=== PATIENT | male | born 1990 | race Caucasian/White ===

== ENCOUNTER 2016-12-13 08:00 | Inpatient (IN) | payer OTHER ==
[~2016-12-13] VITALS: Ht 182.9 cm; Wt 88.5 kg
--- NOTE | ~2016-12-13 | PN ---
Unit #: [id number] #: [id number] Patient: BRENDEN DIA [id number] [facility] [address] [place] [address] [id number] MR#: [id number] NAME: BRENDEN DIA ROOM: [facility] Age: 26 Sex: M Admission Date: 12/13/2016 : 1990 Attending Physician: Jef Higgins M.D. Admitting Physician: Jef Higgins M.D. Primary Care Physician: Florinda CARRILLO PROGRESS NOTES DATE OF SERVICE 12/15/2016 DISCUSSION Brenden slept a little bit better with Remeron last night. His mood continues to depressed and anxious with a congruent affect this morning. He is alert and fully oriented. His memory and concentration appear intact and his thought processes are logical with no active psychosis. He does continue to endorse suicidal ideation. ASSESSMENT Major depression. PLAN We will continue current treatment plan in the introduction of Remeron. Dictated by... Yessi Stinson/osbaldo TD: 12/18/2016 23:03 [facility] [id number] [facility] Page 1 of 1 X Jef Higgins MD PROGRESS NOTE
--- NOTE | ~2016-12-13 | HP ---
Unit #: [id number] #: [id number] Patient: BRENDEN DIA [id number] [place] [address] [id number] MR#: [id number] NAME: BRENDEN DIA ROOM: [facility] Age: 26 Sex: M Admission Date: 12/13/2016 : 1990 Attending Physician: Jef Higgins M.D. Admitting Physician: Jef Higgins M.D. Primary Care Physician: Florinda Taylor HISTORY AND PHYSICAL HISTORY OF PRESENT ILLNESS Brenden is a 26-year-old male admitted on 12/13/2016 to [facility] for attempted suicide by overdosing on benzos. PAST MEDICAL HISTORY Hepatitis C. PAST SURGICAL HISTORY Sinus surgical repair for nasal polyps and left wrist fractures surgically repaired with pin placement. SOCIAL HISTORY Denies tobacco or alcohol use. does a report a history of opioid and benzo use but denies any in the past five months other than his attempted overdose. He is currently single and living with his parents. FAMILY HISTORY Noncontributory. REVIEW OF SYSTEMS CONSTITUTIONAL: No fever or chills. HEENT: Denies any sore throat, ear pain or runny nose. CARDIOVASCULAR: Denies chest pain, irregular heart rhythm or palpitations. CHEST: Denies shortness of breath or cough. No hemoptysis. GASTROINTESTINAL: Denies nausea, vomiting, diarrhea or chronic constipation. ENDOCRINE: Denies history of increased thirst or urination. No recent significant weight loss or gain. GENITOURINARY: Denies dysuria, frequency, or hematuria. SKIN: Denies any rashes. HEMATOLOGIC: Denies history of increased bleeding or bruising. MUSCULOSKELETAL: Denies any hot, swollen joints. No generalized muscle pain. NEUROLOGIC: Denies problems with vision or speech. No frequent, severe headaches. No numbness, tingling or weakness in any extremities. Denies loss of bladder or bowel control. CURRENT MEDICATIONS Paxil and Carafate. ALLERGIES Unit #: [id number] #: [id number] Patient: BRENDEN DIA No known drug allergies. PHYSICAL EXAMINATION GENERAL: Alert, oriented, in no acute distress. VITAL SIGNS: Blood pressure 143/103, heart rate 78, respirations 18, temperature 98.6. HEIGHT: 6 foot 0 inches. WEIGHT: 195 pounds. SKIN: Warm and dry without rash or lesion. HEENT: Normocephalic. TMs not viewed. Oral and nasal passages clear. Conjunctivae clear. PERRLA. EOMs intact. NECK: Supple without lymphadenopathy or thyromegaly. HEART: Regular rate and rhythm without murmur. LUNGS: Clear. ABDOMEN: Soft, nontender, without masses or hepatosplenomegaly. : Not done. EXTREMITIES: No evidence of cyanosis, clubbing or edema. Moves all without focal deficit. NEUROLOGICAL: Grossly within normal limits. Cranial Nerves: II: Visual basurto are intact. III, IV AND : Extraocular movements are intact. Pupils are equal, round and reactive to light. V: Facial sensation is grossly normal. VII: Facial movements and expression are normal. VIII: Auditory acuity grossly intact. IX, X: Uvula is midline. Phonation is normal. XI: Patient shrugs shoulders and turns head normally. XII: Tongue protrudes in the midline. Sensory and Motor Function: Sensory and motor sensation is grossly normal. Motor: moves all extremities well. Coordination: Gait is normal. Deep Tendon Reflexes: Intact. IMPRESSION 1. Psychiatric admission. 2. Hepatitis C. RECOMMENDATIONS Psychiatric, per psychiatrist. MEDICAL: I see no contraindications to participating in facility's activities. MEDICAL PROGNOSIS Good. MEDICAL CONDITION Stable. Dictated by... Kendrick Gomez/osbaldo TD: 12/14/2016 00:05 JOB #: [id number] Unit #: [id number] #: [id number] Patient: BRENDEN DIA HISTORY AND PHYSICAL Page 1 of 1 X MEENU HIRSCH APRN HISTORY AND PHYSICAL
--- NOTE | ~2016-12-13 | PN ---
Unit #: [id number] #: [id number] Patient: BRENDEN DIA [id number] [facility] [address] [place] [address] [id number] I MR#: [id number] NAME: BRENDEN DIA ROOM: [facility] Age: 26 Sex: M Admission Date: 12/13/2016 : 1990 Attending Physician: Jef Higgins M.D. Admitting Physician: Jef Higgins M.D. Primary Care Physician: Florinda CARRILLO PROGRESS NOTES DATE 12/18/2016 DISCUSSION Brenden continues to be generally isolated and has attended a few groups and activities, he complains of anxiety and feels that his medicine is "not working." The course of time required for antidepressants were explained to him, and he was strongly encouraged to attend more groups and activities as a part of his therapeutic plan. He does continue to complain of anxiety and agreed to a trial of Buspirone. ASSESSMENT Major depression. PLAN Add BuSpar 10 mg twice daily and encourage full participation in groups and activities. Dictated by... Yessi Stinson/hazel TD: 12/18/2016 12:19 JOB #: [id number] [facility] PROGRESS NOTES Page 1 of 1 X Jef Higgins MD PROGRESS NOTE
--- NOTE | ~2016-12-13 | DS ---
Unit #: [id number] #: [id number] Patient: BRENDEN DIA [id number] [facility] [address] [place] [address] [id number] MR#: [id number] NAME: BRENDEN DIA ROOM: [facility] Age: 26 Sex: M Admission Date: 12/13/2016 : 1990 Discharge Date: 12/20/2016 Attending Physician: Jef Higgins M.D. Primary Care Physician: Florinda Taylor DISCHARGE SUMMARY REASON FOR ADMISSION Brenden is a 26-year-old man who took an intentional overdose of a benzodiazepine combination [place]. The patient has been struggling with chemical dependence and depression for a number of years. He had suicidal ideation with a plan to go purchase a gun and all the guns had been removed from his home by his parents. He was admitted for stabilization. LABORATORY DATA: Please see hospital chart. HOSPITAL COURSE Patient was admitted and placed on suicide precautions. Paroxetine was ineffective according to the patient and was replaced with Remeron 30 mg at bedtime. He had minimal detox symptomatology but did continue to complain of anxiety and buspirone 10 mg twice daily was added for control of anxiety. The patient tolerated his medications well and show gradual improvement in his mood with no suicidal ideation, intent or plan on the date of discharge. DISCHARGE DIAGNOSIS AXIS I: Major depression, benzodiazepine abuse. AXIS II: No diagnosis. AXIS III History of hepatitis C. INSTRUCTION TO PATIENT Follow up with [facility]. DISCHARGE MEDICATIONS 1. Remeron 30 mg at bedtime for depression, 2. BuSpar 10 mg twice daily 880 mm 2:00 p.m. for anxiety. 3. Trazodone 50 mg at bedtime Is needed for insomnia. Paroxetine was discontinued. CONDITION ON DISCHARGE Improved. PROGNOSIS Fair to good. DIET AND ACTIVITY ad rosangela Unit #: [id number] #: [id number] Patient: BRENDEN DIA Dictated by... Yessi StinsonH/osbaldo TD: 12/22/2016 02:12 JOB #: [id number] DISCHARGE SUMMARY Page 1 of 1 X Jef Higgins MD DISCHARGE SUMMARY
--- NOTE | ~2016-12-13 | PA ---
Unit #: [id number] #: [id number] Patient: BRENDEN DIA [id number] [facility] [address] [place] [address] [id number] I MR#: [id number] NAME: BRENDEN DIA ROOM: [facility] Age: 26 Sex: M Admission Date: 12/13/2016 : 1990 Date of Assessment: Attending Physician: Jef Higgins M.D. Admitting Physician: Jef Higgins M.D. Primary Care Physician: Florinda Taylor PSYCHIATRIC ASSESSMENT DATE OF SERVICE 12/14/2016. INFORMANTS The patient reliable; [employer], reliable; [facility], reliable. CHIEF COMPLAINT Benzodiazepine overdose. HISTORY OF PRESENT ILLNESS The patient is a 26-year-old man, who reports he took an intentional overdose of a benzodiazepine combination [place]. He says he has been struggling with depression and chemical dependence for several years. He says he can get out of bed, and is extremely anxious around other people, and is unable to work. He also had thought about using a gun, but all the guns have been removed from his home by his parents. He was admitted for psychiatric assessment and stabilization. PAST PSYCHIATRIC HISTORY Multiple previous rehab stays for chemical dependence, and a stay at the [facility] in 2004 as a teenager. He currently takes paroxetine. FAMILY PSYCHIATRIC HISTORY The patient's father suffers from depression. SOCIAL HISTORY The patient denied a history of childhood abuse or neglect. He is a single heterosexual man, who is a high school graduate with some college. He says his depression prevents him from working right now. He is on home incarceration for substance possession. PAST MEDICAL HISTORY No chronic medical problems. MEDICATIONS None currently. ALLERGIES No known medication allergies. SUBSTANCE USE HISTORY As noted above. Unit #: [id number] #: [id number] Patient: BRENDEN DIA MENTAL STATUS EXAMINATION The patient presented as a mildly disheveled man, who appeared his stated age. He was cooperative with the examination. His speech was soft, but easily understood. His musculoskeletal examination was calm. His mood was depressed with a congruent affect. He was alert and fully oriented. His memory and concentration were intact. His thought processes were goal directed with no active psychosis. He reported suicidal ideation with a plan to overdose or shoot himself, and could not contract for safety outside of the hospital. His insight and judgment were fair. His fund of knowledge and abstraction were good. ASSETS AND LIABILITIES The patient knows local resources, has supportive family, and presents voluntarily for treatment. Liabilities include frequent illegal drug use and difficulty maintaining treatment. ADMITTING DIAGNOSES AXIS I: Major depression, F33.2. Benzodiazepine abuse. AXIS II: No diagnosis. AXIS III: History of hepatitis C. AXIS IV: AXIS V: PSYCHIATRIC PLAN The patient was admitted and placed on suicide precautions. We will substitute Remeron for paroxetine, and monitor the patient for any benzodiazepine detox symptoms. He will enroll in psychotherapy groups and activities, and physical examination laboratory studies will be ordered and reviewed. TREATMENT GOALS Resolution of suicidal ideation, improvement in insight, and improvement in coping skills. DISCHARGE PLANNING Follow [facility] with [facility] and primary care physician. ESTIMATED LENGTH OF STAY 5 days. Dictated by... Jef Higgins M.D. CINDY/alin TD: 12/17/2016 11:04 JOB #: [id number] Unit #: [id number] #: [id number] Patient: BRENDEN DIA PSYCHIATRIC ASSESSMENT Page 1 of 1 X Jef Higgins MD PSYCHIATRIC ASSESSMENT
--- NOTE | ~2016-12-13 | PN ---
Unit #: [id number] #: [id number] Patient: BRENDEN DIA [id number] [facility] [address] [place] [address] [id number] I MR#: [id number] NAME: BRENDEN DIA ROOM: [facility] Age: 26 Sex: M Admission Date: 12/13/2016 : 1990 Attending Physician: Jef Higgins M.D. Admitting Physician: Jef Higgins M.D. Primary Care Physician: Florinda CARRILLO PROGRESS NOTES DATE OF SERVICE: 12/19/2016 DISCUSSION Brenden is a little bit improved today. He was able to get up and around to groups yesterday and is attending more today. He is sleeping better and has a better appetite. He is alert, fully oriented with no psychosis. He denies active suicidal ideations today, although he is concerned about his future as he believes that he has some "penitentiary time on the shelf," that he will be forced to serve after leaving the hospital, and is concerned about staying on treatment while incarcerated. We discussed the options and he is agreeable to work with his older adult social work specialist toward this. ASSESSMENT Major depression. PLAN Continue current treatment plan. Anticipating discharge in the near future. Dictated by... Yessi Stinson/alin TD: 12/19/2016 13:43 JOB #: [id number] [facility] PROGRESS NOTES Page 1 of 1 X Jef Higgins MD PROGRESS NOTE
--- NOTE | ~2016-12-13 | PN ---
Unit #: [id number] #: [id number] Patient: BRENDEN DIA [id number] [facility] [address] [place] [address] [id number] MR#: [id number] NAME: BRENDEN DIA ROOM: [facility] Age: 26 Sex: M Admission Date: 12/13/2016 : 1990 Attending Physician: Jef Higgins M.D. Admitting Physician: Jef Higgins M.D. Primary Care Physician: Florinda CARRILLO PROGRESS NOTES DATE 12/17/2016 DISCUSSION Mr. Dia continues to be dysphoric and generally isolative from peers and staff. He comes up for meals and medications but rarely attends groups. Mood is depressed with a congruent affect. He is alert and fully oriented. His memory and concentration are intact. His thought processes are logical with no evidence of psychosis. He does report ongoing depression and mild suicidal ideation. ASSESSMENT Major depression. PLAN Continue current treatment plan. Dictated by... Yessi Stinson/osbaldo TD: 12/18/2016 23:37 JOB #: [id number] [facility] PROGRESS NOTES Page 1 of 1 X Jef Higgins MD PROGRESS NOTE
== END 2016-12-20 11:15 | DRG 881 ==
LOC: P2L 14:52
DX: F32.9 Major depressive disorder, single episode, unspecified (principal); R45.851 Suicidal ideations; F19.10 Other psychoactive substance abuse, uncomplicated; B19.20 Unspecified viral hepatitis C without hepatic coma